=== PATIENT | female | born 1950 | race Caucasian/White ===

== ENCOUNTER 2017-05-19 13:14 | Observation (INO) | payer OTHER ==
[~2017-05-19] VITALS: Ht 167.6 cm; Wt 65.0 kg
[~2017-05-19 13:14] MED LIST: Z.0.NO CURRENT MEDS
--- NOTE | 2017-05-19 13:44 | PD ---
HPI Chief Complaint: abdominal pain Time Seen by Provider: 13:39 Travel History International Travel<30 days: No Contact w/Intl Traveler<30days: No Traveled to known affect area: No History of Present Illness HPI 66- year old female presents to the ED complaining of abdominal pain. She has a past medical history of hypotension and DVT. She reports epigastric pain that started around 4 this morning. She took 1/2 bottle of a peach drink, and 2 Mylanta but had no relief. She reports some associated nausea, but denies any vomiting or diarrhea. The patient states that the pain radiates to her lower back. She reports a few days ago she had some shortness of breath but it has resolved. She had two abdominal surgeries in the past including appendectomy and tummy tuck. She denies any smoking, drugs, or alcohol use. She does tell me she has a history of gallbladder disease. Per patient she follows with Dr. rolon and she was told that she needed to change her diet such she can prevent having gallbladder stones. She still has her gallbladder. She denies any chest pain or shortness of breath. She states that she has been eating a lot of hamburgers recently. PFSH Past Medical History Heart Rhythm Problems: Yes (TACHY TO A OMAR WITH VPC) Diminished Hearing: No Menopausal: Yes Past Surgical History Hysterectomy: Yes Other Surgery: Yes (PARTIAL THYROIDECTOMY) Social History Alcohol Use: No Tobacco Use: No Substance Use: No Allergies-Medications (Allergen,Severity, Reaction): Coded Allergies: aspirin (Verified Allergy, Severe, 05/19/17) Reported Meds & Prescriptions Reported Meds & Active Scripts Active Reported No Current Meds (Miscellaneous Medication) Misc Review of Systems General / Constitutional: No: Fever, Chills, Weight Gain, Weight Loss, Other Eyes: No: Diploplia, Blurred Vision, Photophobia, Drainage, Redness, Foreign Body Sensation, Pain, Tearing, Blind Spots, Visual changes, Blindness, Other HENT: No: Headaches, Vertigo, Lightheadedness, Sore Throat, Rhinitis, Rhinorrhea, Congestion, Nosebleed, Neck Stiffness, Neck Pain, Masses, Gingival Bleeding, Dental Difficulties, Ear Discharge, Earache, Other Cardiovascular: No: Chest Pain or Discomfort, Palpitations, Irregular Rhythm, Tachycardia, Diaphoresis, Syncope, Dyspnea on exertion, Varicosities, Edema, Cyanosis, Varicosities, Phlebitis, Claudication, Other Respiratory: Positive: Shortness of Breath (resolved), No: Cough, Wheezing, Sneezing, Orthopnea, Hemoptysis, Stridor, Night Sweats, Pleuritic Pain, Other Gastrointestinal: Positive: Nausea, Abdominal Pain, No: Vomiting, Diarrhea, Hematemesis, Hematochezia, Constipation, Changes in Bowel Habits, Indigestion, Dysphagia, Loss of Appetite, Other Genitourinary: No: Urgency, Frequency, Dysuria, Nocturia, Hematuria, Decreased Urinary Output, Oliguria, Hesitancy, Dribbling, Incontinence, Pelvic Pain, Flank Pain, Dyspareunia, Discharge, Dysmenorrhea, Menorrhagia, Metorrhagia, Vaginal Bleeding, Other Musculoskeletal: Positive: Pain (lower back pain), No: Myalgias, Arthralgias, Limited ROM, Weakness, Cramping, Edema, Atrophy, Other Skin: No Rash, No Itching, No Dryness, No Lumps, No Hives, No Change in Pigmentation, No Change in nails, No Alopecia, No Lesions, No Breast Lumps, No Breast Tenderness, No Breast Swelling, No Other Neurologic: No: Weakness, Dizziness, Syncope, Focal Abnormalities, Coordination Problem, Tremor, Ataxia, Headache, Change in Mentation, Slurred Speech, Paresthesia, Incontinence, Seizures, Sensory Disturbance, Other Psychiatric: No: Anxiety, Depression, Suicidal Ideations, Disorder of Thought, Mood Disorder, Substance Abuse, Homicidal Ideation, Other Endocrine: No: Heat Intolerance, Cold Intolerance, Polyuria, Polydipsia, Other Hematologic/Lymphatic: No: Easy Bruising, Lymph Node Enlargement, Other Physical Exam Narrative GENERAL: SKIN: Warm and dry. HEAD: Atraumatic. Normocephalic. EYES: Pupils equal and round. No scleral icterus. No injection or drainage. ENT: No nasal bleeding or discharge. Mucous membranes pink and moist. Tongue is midline. No uvula deviation. NECK: Trachea midline. No JVD. CARDIOVASCULAR: Regular rate and rhythm. No murmurs, S3, S4. RESPIRATORY: No accessory muscle use. Clear to auscultation. Breath sounds equal bilaterally. GASTROINTESTINAL: Tender to palpation in RUQ and LUQ. Abdomen soft, nondistended. Hepatic and splenic margins not palpable. MUSCULOSKELETAL: Extremities without clubbing, cyanosis, or edema. No obvious deformities. NEUROLOGICAL: Awake and alert. No obvious cranial nerve deficits. Motor grossly within normal limits. Five out of 5 muscle strength in the arms and legs. Normal speech. PSYCHIATRIC: Appropriate mood and affect; insight and judgment normal. Data Data Last Documented VS Vital Signs Date Time Temp Pulse Resp B/P Pulse Ox O2 Delivery O2 Flow Rate FiO2 05/19/17 16:12 16 05/19/17 14:11 48 05/19/17 13:59 97.8 161/70 98 Orders Electrocardiogram (05/19/17 13:32) Complete Blood Count With Diff (05/19/17 13:32) Comprehensive Metabolic Panel (05/19/17 13:32) Ckmb (Isoenzyme) Profile (05/19/17 13:32) Troponin I (05/19/17 13:32) Prothrombin Time / Inr (Pt) (05/19/17 13:32) Act Partial Throm Time (Ptt) (05/19/17 13:32) Lipase (05/19/17 13:32) Magnesium (Mg) (05/19/17 13:32) Chest, Single Ap (05/19/17 13:32) Iv Access Insert/Monitor (05/19/17 13:32) Ecg Monitoring (05/19/17 13:32) Oximetry (05/19/17 13:32) D-Dimer (05/19/17 13:45) Morphine Inj (Morphine Inj) (05/19/17 13:45) Ondansetron Inj (Zofran Inj) (05/19/17 13:45) CKMB (05/19/17 13:40) CKMB% (05/19/17 13:40) Lactic Acid (05/19/17 14:47) Ct Abd/Pel W Iv Contrast(Rout) (05/19/17 14:47) Morphine Inj (Morphine Inj) (05/19/17 15:45) Iohexol 350 Inj (Omnipaque 350 Inj) (05/19/17 16:01) Us Abdomen Gallbladder (05/19/17 ) Admit Order (Ed Use Only) (05/19/17 18:29) Labs Laboratory Tests Test 05/19/17 05/19/17 13:40 15:00 White Blood Count 8.6 TH/MM3 Red Blood Count 5.02 MIL/MM3 Hemoglobin 15.3 GM/DL Hematocrit 44.0 % Mean Corpuscular Volume 87.7 FL Mean Corpuscular Hemoglobin 30.5 PG Mean Corpuscular Hemoglobin 34.8 % Concent Red Cell Distribution Width 13.4 % Platelet Count 180 TH/MM3 Mean Platelet Volume 9.3 FL Neutrophils (%) (Auto) 82.9 % Lymphocytes (%) (Auto) 11.9 % Monocytes (%) (Auto) 4.7 % Eosinophils (%) (Auto) 0.2 % Basophils (%) (Auto) 0.3 % Neutrophils # (Auto) 7.1 TH/MM3 Lymphocytes # (Auto) 1.0 TH/MM3 Monocytes # (Auto) 0.4 TH/MM3 Eosinophils # (Auto) 0.0 TH/MM3 Basophils # (Auto) 0.0 TH/MM3 CBC Comment DIFF FINAL Differential Comment Prothrombin Time 10.7 SEC Prothromb Time International 1.0 RATIO Ratio Activated Partial 23.2 SEC Thromboplast Time D-Dimer Quantitative (PE/DVT) 0.33 MG/L FEU Sodium Level 136 MEQ/L Potassium Level 4.1 MEQ/L Chloride Level 104 MEQ/L Carbon Dioxide Level 24.2 MEQ/L Anion Gap 8 MEQ/L Blood Urea Nitrogen 20 MG/DL Creatinine 1.14 MG/DL Estimat Glomerular Filtration 48 ML/MIN Rate Random Glucose 148 MG/DL Calcium Level 10.0 MG/DL Magnesium Level 2.3 MG/DL Total Bilirubin 0.7 MG/DL Aspartate Amino Transf 30 U/L (AST/SGOT) Alanine Aminotransferase 30 U/L (ALT/SGPT) Alkaline Phosphatase 98 U/L Total Creatine Kinase 124 U/L Creatine Kinase MB 0.9 NG/ML Troponin I LESS THAN 0.02 NG/ML Total Protein 7.1 GM/DL Albumin 3.9 GM/DL Lipase 169 U/L Lactic Acid Level 1.6 mmol/L MDM Medical Decision Making Medical Screen Exam Complete: Yes Emergency Medical Condition: Yes Medical Record Reviewed: Yes Interpretation(s) CBC & BMP Diagram 05/19/17 13:40 LFTS WNL Lipase WNL EKG shows sinus rhythm but no sign of acute ischemia or arrythmia read by me and attending. Troponin and CK-MB negative. Last Impressions Chest X-Ray 05/19/17 1332 Signed Impressions: Service Date/Time: Friday, May 19, 2017 13:37 - CONCLUSION: 1. No acute cardiopulmonary disease. 2. Degenerative changes and scoliosis of the thoracolumbar spine. 3. Minimal scarring within the right lateral lung base. Talha Treadwell MD Last Impressions Abdomen/Pelvis CT 05/19/17 1447 Signed Impressions: Service Date/Time: Friday, May 19, 2017 15:46 - CONCLUSION: 1. Biliary dilatation and gallstones. This can be correlated with any signs of cholecystitis and biliary obstruction. A distal stone cannot be ruled out. A ductal stone is not seen on the CT examination. 2. Small non-obstructing right renal stone. Ellis Marr MD Chest X-Ray 05/19/17 1332 Signed Impressions: Service Date/Time: Friday, May 19, 2017 13:37 - CONCLUSION: 1. No acute cardiopulmonary disease. 2. Degenerative changes and scoliosis of the thoracolumbar spine. 3. Minimal scarring within the right lateral lung base. Talha Treadwell MD Gall Bladder Ultrasound 05/19/17 0000 Signed Impressions: Service Date/Time: Friday, May 19, 2017 17:13 - CONCLUSION: Cholelithiasis with a distended gallbladder with a thickened gallbladder wall. This should be correlated with any signs of cholecystitis. The common bile duct is also dilated. A biliary duct stone is not seen. Ellis Marr MD Differential Diagnosis Cholecystitis versus cholelithiasis versus gallbladder disease versus PE versus chest pain versus atypical chest pain versus podarthritis versus pancreatitis Narrative Course 66-year-old female that presents to the ED for evaluation of chest pain. Patient was properly examined and was found to have signs and symptoms consistent appears to be more likely abdominal pain. Labs and imaging were ordered. Labs and imaging showed possible gallbladder disease. Ultrasound was ordered. Ultrasound was positive for cholecystitis. Case was consulted with my attending Dr. Gregory who agrees the patient should be consulted with general surgery. Spoke with Dr. Woo who agrees to admission to his service for surgery tomorrow. Patient was told this and agrees with plan. Diagnosis Primary Impression: Cholecystitis, acute with cholelithiasis Qualified Code: K80.63 - Calculus of gallbladder and bile duct with acute cholecystitis, with obstruction Admitting Information Admitting Physician Requests: Admit Lino Hernandez May 19, 2017 13:44
[2017-05-19] MEDS ORDERED: MORPHINE SULFATE 4 MG/ML INJ IV PUSH ONE ×2 (13:45→15:45)
[2017-05-19] MEDS ORDERED: ONDANSETRON HCL 4 MG/2 ML VIAL IV PUSH ONE (13:45)
[2017-05-19 13:59] VITALS: BP 161/70; PULSE 59; RESP 20; TEMP 97.8; O2SAT 98
[2017-05-19 13:59] LABS: AUTOMATED NEUTROPHIL # 7.1 TH/MM3 (1.8-7.7); BASOPHIL % 0.3 % (0.0-2.0); EOSINOPHIL % 0.2 % (0.0-4.0); HEMO FLAGS DIFF FINAL; LYMPH % 11.9 % (9.0-44.0); MEAN CELL VOLUME 87.7 FL (80.0-100.0); MEAN CORPUSCULAR HEMOGLOBIN 30.5 PG (27.0-34.0); MEAN CORPUSCULAR HGB CONC 34.8 % (32.0-36.0); MONO % 4.7 % (0.0-8.0); NEUT % 82.9 % (16.0-70.0); PLATELET COUNT 180 TH/MM3 (150-450); RED BLOOD COUNT 5.02 MIL/MM3 (4.00-5.30); RED CELL DISTRIBUTION WIDTH 13.4 % (11.6-17.2); WHITE BLOOD COUNT 8.6 TH/MM3 (4.0-11.0)
[2017-05-19 14:13] LABS: APTT (PATIENT) 23.2 SEC (24.3-30.1); PROTHROMBIN TIME - PATIENT 10.7 SEC (9.8-11.6)
[2017-05-19 14:14] LABS: ANION GAP 8 MEQ/L (5-15); AST (GOT) 30 U/L (15-37); BICARBONATE 24.2 MEQ/L (21.0-32.0); BLOOD UREA NITROGEN 20 MG/DL (7-18); CHLORIDE 104 MEQ/L (98-107); GLOMERULAR FILTRATION RATE 48 ML/MIN (>89); MAGNESIUM 2.3 MG/DL (1.5-2.5); POTASSIUM 4.1 MEQ/L (3.5-5.1); SODIUM (NA) 136 MEQ/L (136-145)
[2017-05-19 14:15] LABS: ALT (GPT) 30 U/L (10-53)
[2017-05-19 14:19] LABS: ALKALINE PHOSPHATASE 98 U/L (45-117); CREATINE KINASE 124 U/L (26-192); TOTAL BILIRUBIN ADULT 0.7 MG/DL (0.2-1.0)
[2017-05-19 14:31] LABS: CKMB 0.9 NG/ML (0.5-3.6)
--- NOTE | 2017-05-19 15:06 | RADRPT ---
EXAM DATE/TIME: 05/19/2017 13:37 [facility] COMPARISON: No previous studies available for comparison. INDICATIONS : Severe back and epigastric pain today. MEDICAL HISTORY : Tachycardia. SURGICAL HISTORY : Hysterectomy. Cervical fusion. Partial thyroidectomy. ENCOUNTER: Initial ACUITY: 1 day PAIN SCORE: 10/10 LOCATION: Bilateral chest FINDINGS: The heart and mediastinal structures are normal. The pulmonary vascular pattern is also normal. The lungs are clear. Minimal scarring is noted within the right lateral lung base. Degenerative changes and scoliosis of the thoracolumbar spine are noted. CONCLUSION: 1. No acute cardiopulmonary disease. 2. Degenerative changes and scoliosis of the thoracolumbar spine. 3. Minimal scarring within the right lateral lung base. Talha Treadwell MD on May 19, 2017 at 15:00 Board Certified Radiologist. This report was verified electronically.
[2017-05-19] MEDS ORDERED: IOHEXOL 350 MG/ML 10 ML VIAL (for RAD DIAG) IV ONE (16:01)
--- NOTE | 2017-05-19 16:31 | RADRPT ---
EXAM DATE/TIME: 05/19/2017 15:46 [facility] COMPARISON: No previous studies available for comparison. INDICATIONS : Epigastric pain radiating to chest and back. IV CONTRAST: 85 cc Omnipaque 350 (iohexol) IV ORAL CONTRAST: No oral contrast ingested. RADIATION DOSE: 9.96 CTDIvol (mGy) MEDICAL HISTORY : Cardiovascular disease. SURGICAL HISTORY : Appendectomy. Hysterectomy. ENCOUNTER: Initial ACUITY: 1 day PAIN SCALE: 5/10 LOCATION: Bilateral upper quadrant TECHNIQUE: Volumetric scanning of the abdomen and pelvis was performed. Using automated exposure control and ad justment of the mA and/or kV according to patient size, radiation dose was kept as low as reasonably achievable to obtain optimal diagnostic quality images. DICOM format image data is available electro nically for review and comparison. FINDINGS: LOWER CHEST: The visualized lower lungs are clear. Bilateral breast implants are present. LIVER: There is intrahepatic biliary duct dilatation. The common bile duct appears dilated at 9 mm. There do appear to be gallstones within the gallbladder. The gallbladder is moderately distended. SPLEEN: Normal size without lesion. PANCREAS: Within normal limits. KIDNEYS: There is a 2 mm nonobstructing right renal stone. Nephrosis is seen. ADRENAL GLANDS: Within normal limits. VASCULAR: There is no aortic aneurysm. BOWEL/MESENTERY: Colonic diverticula are seen in the sigmoid region without inflammatory changes. ABDOMINAL WALL: Within normal limits. RETROPERITONEUM: There is no lymphadenopathy. BLADDER: No wall thickening or mass. REPRODUCTIVE: The patient is status post hysterectomy. A pelvic mass is not seen. INGUINAL: There is no lymphadenopathy or hernia. MUSCULOSKELETAL: Within normal limits for patient age. CONCLUSION: 1. Biliary dilatation and gallstones. This can be correlated with any signs of cholecystitis and bili geovanna obstruction. A distal stone cannot be ruled out. A ductal stone is not seen on the CT examination . 2. Small non-obstructing right renal stone. Ellis Marr MD on May 19, 2017 at 16:25 Board Certified Radiologist. This report was verified electronically.
--- NOTE | 2017-05-19 17:57 | RADRPT ---
EXAM DATE/TIME: 05/19/2017 17:13 [facility] COMPARISON: CT ABDOMEN & PELVIS W CONTRAST, May 19, 2017, 15:46. INDICATIONS : Right upper quadrant pain. MEDICAL HISTORY : Deep venous thrombosis. Bilateral pulmonary embolism. Irregular heartbeat. Hypotension. SURGICAL HISTORY : Appendectomy. Hysterectomy. Fusion, cervical. Partial thyroidectomy. Breast augmentation. Abdominopla sty. ENCOUNTER: Initial ACUITY: 1 day PAIN SCORE: 5/10 LOCATION: Right upper quadrant MEASUREMENTS: LIVER: 14.6 cm length COMMON DUCT: 11 mm RIGHT KIDNEY: 10.5 x 5.2 x 3.2 cm FINDINGS: LIVER: Normal echotexture without focal lesion or ductal dilatation. COMMON DUCT: Common bile duct dilated. No stones are seen within the common bile duct. GALLBLADDER: Multiple stones are seen. The gallbladder wall is thickened at 6 mm. The gallbladder is distended. PANCREAS: The visualized portions are within normal limits. RIGHT KIDNEY: No evidence of hydronephrosis, stone, or mass. CONCLUSION: Cholelithiasis with a distended gallbladder with a thickened gallbladder wall. This should be correla carmen with any signs of cholecystitis. The common bile duct is also dilated. A biliary duct stone is no t seen. Ellis Marr MD on May 19, 2017 at 17:52 Board Certified Radiologist. This report was verified electronically.
[2017-05-19] MEDS ORDERED: SODIUM CHLORIDE 0.9% FLUSH 10 ML FLUSH IV FLUSH PRN (18:45)
[2017-05-19] MEDS ORDERED: diphenhydrAMINE HCL 50 MG/ML VIAL IV PRN (18:45)
[2017-05-19] MEDS ORDERED: ONDANSETRON HCL 4 MG/2 ML VIAL IV PRN (18:45)
[2017-05-19] MEDS: D5-1/2 NS + KCL 20 MEQ INJ 1,000 ML IV SCH (19:49)
[2017-05-19] MEDS: LEVOFLOXACIN 500 MG PREMIX INJ 100 ML IV SCH (19:49)
[2017-05-19 19:55] VITALS: BP 133/63; PULSE 56; RESP 20; O2SAT 98
[2017-05-19 20:00] VITALS: BP 141/63; PULSE 32; RESP 17; TEMP 95.9; O2SAT 98
[2017-05-19] MEDS: metroNIDAZOLE 500 MG INJ 100 ML IV SCH (20:08)
[2017-05-19] MEDS: HYDROmorphone HCL PF 1 MG/ML VIAL IV PUSH PRN (20:40)
[2017-05-19] MEDS: SODIUM CHLORIDE 0.9% FLUSH 10 ML FLUSH IV FLUSH SCH (21:00)
--- NOTE | 2017-05-19 22:03 | HHI.HP ---
[facility] Service General Surgery Primary Care Physician Rylie Cohen MD Admission Diagnosis acute cholecystitis Chief Complaint: Abdominal pain History of Present Illness The patient is a 66-year-old female with a known history of gallstones who presents with severe abdominal pain. The pain started as a dull ache this morning at 4 AM and then progressed to severe epigastric pain radiating to the substernal area and to the back. It was unrelenting. She had nausea but no vomiting. She had relief only upon receiving IV pain medication in the emergency department about 7 years ago according to the patient she found out that she had gallstones. She says that she used some sort of alternative treatment to dissolve the gallstones. Also around that time she stopped being vegan and began eating meat. Last night she had a hamburger for dinner. She had labs which showed normal white blood count but a significant left shift. LFTs were normal. CT abdomen and pelvis showed a distended gallbladder and a dilated common bile duct. Ultrasound of the gallbladder showed wall thickening , gallstones, common bile duct of 11 mm. Review of Systems Constitutional: DENIES: Fever, Chills Eyes: DENIES: Eye inflammation, Eye pain Respiratory: DENIES: Cough, Wheezing Cardiovascular: COMPLAINS OF: Chest pain, DENIES: Syncope Gastrointestinal: COMPLAINS OF: Abdominal pain, Nausea, DENIES: Vomiting Integumentary: DENIES: Pruritus, Rash Neurologic: DENIES: Headache, Localized weakness, Seizures Past Family Social History Past Medical History DVT/PE Bradycardia Past Surgical History Appendectomy Hysterectomy Abdominoplasty Partial thyroidectomy Reported Medications Reported Meds & Active Scripts Active Reported No Current Meds (Miscellaneous Medication) Misc Allergies: Coded Allergies: aspirin (Verified Allergy, Severe, 05/19/17) Active Ordered Medications Current Medications Medications (Trade) Dose Ordered Sig/Pao Route Start Time Stop Time Status Last Admin (D5-1/2 NS + KCl 20 Meq Inj) 1,000 ml @ 100 mls/hr Q10H IV 05/19/17 20:00 05/19/17 19:49 (NS Flush) 2 ml UNSCH PRN IV FLUSH 05/19/17 18:45 Sodium Chloride 2 ml 2 ml BID IV FLUSH 05/19/17 21:00 Levofloxacin/ Dextrose 100 ml @ 100 mls/hr Q24H IV 05/19/17 20:00 05/19/17 19:49 (Flagyl 500 Mg Inj) 100 ml @ 100 mls/hr Q8H IV 05/19/17 21:00 05/19/17 20:08 (Zofran Inj) 4 mg Q6H PRN IV 05/19/17 18:45 (Benadryl Inj) 25 mg Q6H PRN IV 05/19/17 18:45 (Dilaudid Pf Inj) 0.5 mg Q3H PRN IV PUSH 05/19/17 18:45 05/19/17 20:40 Family History Noncontributory Social History No alcohol tobacco or drug use Physical Exam Vital Signs Vital Signs Date Time Temp Pulse Resp B/P Pulse Ox O2 Delivery O2 Flow Rate FiO2 05/19/17 21:10 18 05/19/17 20:00 95.9 32 17 141/63 98 05/19/17 19:55 56 20 133/63 98 Room Air 05/19/17 16:12 16 05/19/17 15:41 16 05/19/17 14:11 48 05/19/17 13:59 97.8 59 20 161/70 98 Physical Exam GENERAL: Awake and alert. No acute distress. Cooperative. HEAD: Normocephalic. Atraumatic. EYES: Pupils equal round and reactive to light bilaterally. No scleral icterus. CHEST: Lungs clear to auscultation bilaterally with no wheezing or rhonchi. No respiratory distress. CARDIOVASCULAR: Bradycardic ABDOMEN: Well-healed incisions. Moderate tenderness to palpation in the epigastrium. Negative Acosta sign. EXTREMITIES: No cyanosis or edema. SKIN: Warm, dry, nonjaundiced. Laboratory Laboratory Tests Test 05/19/17 05/19/17 13:40 15:00 White Blood Count 8.6 Red Blood Count 5.02 Hemoglobin 15.3 Hematocrit 44.0 Mean Corpuscular Volume 87.7 Mean Corpuscular Hemoglobin 30.5 Mean Corpuscular Hemoglobin 34.8 Concent Red Cell Distribution Width 13.4 Platelet Count 180 Mean Platelet Volume 9.3 Neutrophils (%) (Auto) 82.9 Lymphocytes (%) (Auto) 11.9 Monocytes (%) (Auto) 4.7 Eosinophils (%) (Auto) 0.2 Basophils (%) (Auto) 0.3 Neutrophils # (Auto) 7.1 Lymphocytes # (Auto) 1.0 Monocytes # (Auto) 0.4 Eosinophils # (Auto) 0.0 Basophils # (Auto) 0.0 CBC Comment DIFF FINAL Differential Comment Prothrombin Time 10.7 Prothromb Time International 1.0 Ratio Activated Partial 23.2 Thromboplast Time D-Dimer Quantitative (PE/DVT) 0.33 Sodium Level 136 Potassium Level 4.1 Chloride Level 104 Carbon Dioxide Level 24.2 Anion Gap 8 Blood Urea Nitrogen 20 Creatinine 1.14 Estimat Glomerular Filtration 48 Rate Random Glucose 148 Calcium Level 10.0 Magnesium Level 2.3 Total Bilirubin 0.7 Aspartate Amino Transf 30 (AST/SGOT) Alanine Aminotransferase 30 (ALT/SGPT) Alkaline Phosphatase 98 Total Creatine Kinase 124 Creatine Kinase MB 0.9 Troponin I LESS THAN 0.02 Total Protein 7.1 Albumin 3.9 Lipase 169 Lactic Acid Level 1.6 Result Diagram: 05/19/17 1340 05/19/17 1340 Imaging Last Impressions Abdomen/Pelvis CT 05/19/17 1447 Signed Impressions: Service Date/Time: Friday, May 19, 2017 15:46 - CONCLUSION: 1. Biliary dilatation and gallstones. This can be correlated with any signs of cholecystitis and biliary obstruction. A distal stone cannot be ruled out. A ductal stone is not seen on the CT examination. 2. Small non-obstructing right renal stone. Ellis Marr MD Chest X-Ray 05/19/17 1332 Signed Impressions: Service Date/Time: Friday, May 19, 2017 13:37 - CONCLUSION: 1. No acute cardiopulmonary disease. 2. Degenerative changes and scoliosis of the thoracolumbar spine. 3. Minimal scarring within the right lateral lung base. Talha Treadwell MD Gall Bladder Ultrasound 05/19/17 0000 Signed Impressions: Service Date/Time: Friday, May 19, 2017 17:13 - CONCLUSION: Cholelithiasis with a distended gallbladder with a thickened gallbladder wall. This should be correlated with any signs of cholecystitis. The common bile duct is also dilated. A biliary duct stone is not seen. Ellis Marr MD Assessment and Plan Assessment and Plan 66-year-old female with acute cholecystitis. She has dilation of the common bile duct and I think she probably had passed a stone. I will repeat LFTs in the morning. She has bradycardia which is asymptomatic. I discussed that I recommend proceeding with laparoscopic possible open cholecystectomy. We discussed details risks and benefits and she desires to proceed. Kunal Woo MD May 19, 2017 22:02
[2017-05-19] MEDS ORDERED: LACTATED RINGER'S 1000 ML IV PRN (22:45)
[2017-05-20] VITALS: BP 127/62; PULSE 35; RESP 17; TEMP 96.1; O2SAT 98
[2017-05-20] MEDS: metroNIDAZOLE 500 MG INJ 100 ML IV SCH ×3 (04:39→22:34)
[2017-05-20] MEDS: D5-1/2 NS + KCL 20 MEQ INJ 1,000 ML IV SCH ×3 (04:40→21:25)
[2017-05-20] MEDS: HYDROmorphone HCL PF 1 MG/ML VIAL IV PUSH PRN ×4 (07:35→21:28)
[2017-05-20] MEDS: SODIUM CHLORIDE 0.9% FLUSH 10 ML FLUSH IV FLUSH SCH ×2 (07:35→21:00)
[2017-05-20 08:00] VITALS: BP 110/61; PULSE 53; RESP 17; TEMP 96.8; O2SAT 97
[2017-05-20 08:13] LABS: AUTOMATED NEUTROPHIL # 4.6 TH/MM3 (1.8-7.7); BASOPHIL % 0.6 % (0.0-2.0); EOSINOPHIL # 0.1 TH/MM3 (0-0.4); EOSINOPHIL % 1.8 % (0.0-4.0); HEMATOCRIT 42.3 % (35.0-46.0); HEMO FLAGS DIFF FINAL; LYMPHOCYTE # 1.3 TH/MM3 (1.0-4.8); MEAN CELL VOLUME 88.4 FL (80.0-100.0); MEAN CORPUSCULAR HEMOGLOBIN 30.4 PG (27.0-34.0); MEAN CORPUSCULAR HGB CONC 34.4 % (32.0-36.0); MONO % 8.9 % (0.0-8.0); NEUT % 69.7 % (16.0-70.0); PLATELET COUNT 145 TH/MM3 (150-450); RED BLOOD COUNT 4.78 MIL/MM3 (4.00-5.30); RED CELL DISTRIBUTION WIDTH 13.5 % (11.6-17.2); WHITE BLOOD COUNT 6.6 TH/MM3 (4.0-11.0)
[2017-05-20 08:39] LABS: ALT (GPT) 26 U/L (10-53); ANION GAP 7 MEQ/L (5-15); AST (GOT) 25 U/L (15-37); BICARBONATE 27.8 MEQ/L (21.0-32.0); BLOOD UREA NITROGEN 12 MG/DL (7-18); CHLORIDE 105 MEQ/L (98-107); GLOMERULAR FILTRATION RATE 56 ML/MIN (>89); POTASSIUM 4.2 MEQ/L (3.5-5.1); SODIUM (NA) 140 MEQ/L (136-145)
[2017-05-20 08:49] LABS: ALKALINE PHOSPHATASE 91 U/L (45-117); TOTAL BILIRUBIN ADULT 1.1 MG/DL (0.2-1.0)
[2017-05-20 12:00] VITALS: BP 127/60; PULSE 57; RESP 16; TEMP 96.2; O2SAT 97
--- NOTE | 2017-05-20 12:13 | HHI.PR ---
Subjective Subjective Notes No complaints. She does not feel hungry. HR alternating 30s to 50s. BP ok, no symptoms. Objective Vitals/I&O Vital Signs Date Time Temp Pulse Resp B/P Pulse Ox O2 Delivery O2 Flow Rate FiO2 05/20/17 08:00 96.8 53 17 110/61 97 05/19/17 19:55 Room Air Labs Laboratory Tests Test 05/19/17 05/19/17 05/20/17 13:40 15:00 06:42 White Blood Count 8.6 6.6 Red Blood Count 5.02 4.78 Hemoglobin 15.3 14.5 Hematocrit 44.0 42.3 Mean Corpuscular Volume 87.7 88.4 Mean Corpuscular Hemoglobin 30.5 30.4 Mean Corpuscular Hemoglobin 34.8 34.4 Concent Red Cell Distribution Width 13.4 13.5 Platelet Count 180 145 Mean Platelet Volume 9.3 9.6 Neutrophils (%) (Auto) 82.9 69.7 Lymphocytes (%) (Auto) 11.9 19.0 Monocytes (%) (Auto) 4.7 8.9 Eosinophils (%) (Auto) 0.2 1.8 Basophils (%) (Auto) 0.3 0.6 Neutrophils # (Auto) 7.1 4.6 Lymphocytes # (Auto) 1.0 1.3 Monocytes # (Auto) 0.4 0.6 Eosinophils # (Auto) 0.0 0.1 Basophils # (Auto) 0.0 0.0 CBC Comment DIFF FINAL DIFF FINAL Differential Comment Prothrombin Time 10.7 Prothromb Time International 1.0 Ratio Activated Partial 23.2 Thromboplast Time D-Dimer Quantitative (PE/DVT) 0.33 Sodium Level 136 140 Potassium Level 4.1 4.2 Chloride Level 104 105 Carbon Dioxide Level 24.2 27.8 Anion Gap 8 7 Blood Urea Nitrogen 20 12 Creatinine 1.14 0.99 Estimat Glomerular Filtration 48 56 Rate Random Glucose 148 111 Calcium Level 10.0 8.6 Magnesium Level 2.3 Total Bilirubin 0.7 1.1 Aspartate Amino Transf 30 25 (AST/SGOT) Alanine Aminotransferase 30 26 (ALT/SGPT) Alkaline Phosphatase 98 91 Total Creatine Kinase 124 Creatine Kinase MB 0.9 Troponin I LESS THAN 0.02 Total Protein 7.1 6.4 Albumin 3.9 3.3 Lipase 169 Lactic Acid Level 1.6 Radiology Last Impressions Abdomen/Pelvis CT 8/15/17 1447 Signed Impressions: Service Date/Time: Friday, May 19, 2017 15:46 - CONCLUSION: 1. Biliary dilatation and gallstones. This can be correlated with any signs of cholecystitis and biliary obstruction. A distal stone cannot be ruled out. A ductal stone is not seen on the CT examination. 2. Small non-obstructing right renal stone. Ellis Marr MD Chest X-Ray 05/19/17 1332 Signed Impressions: Service Date/Time: Friday, May 19, 2017 13:37 - CONCLUSION: 1. No acute cardiopulmonary disease. 2. Degenerative changes and scoliosis of the thoracolumbar spine. 3. Minimal scarring within the right lateral lung base. Talha Treadwell MD Gall Bladder Ultrasound 05/19/17 0000 Signed Impressions: Service Date/Time: Friday, May 19, 2017 17:13 - CONCLUSION: Cholelithiasis with a distended gallbladder with a thickened gallbladder wall. This should be correlated with any signs of cholecystitis. The common bile duct is also dilated. A biliary duct stone is not seen. Ellis Marr MD Narrative Exam NAD Abd: soft, mild ttp Bradycardia A/P Assessment and Plan 66 yo F acute cholecystitis and bradycardia. WIll postpone case for now due to bradycardia. D/w Dr. Garcia and Dr. Penn anesthesia. Dr. Garcia will see today and give further recs. Continue IV antibiotics. Kunal Woo MD May 20, 2017 12:13
--- NOTE | 2017-05-20 14:39 | EKG ---
Date Performed: 05/20/2017 Time Performed: 09:59:08 PTAGE: 66 years EKG: SINUS BRADYCARDIA POSSIBLE LEFT ATRIAL ENLARGEMENT BORDERLINE ECG PREVIOUS TRACING : 05/19/2017 13.33 Compared to prior tracing no significant change DOCTOR: Joey Baird Interpretating Date/Time 05/20/2017 14:38:33
--- NOTE | 2017-05-20 14:55 | MB ---
cc: LOVE DENTON DATE OF CONSULTATION: 05/20/2017 INDICATION Bradycardia. HISTORY OF PRESENT ILLNESS This is a very nice 66-year-old female, she presented to the emergency department with acute onset of severe abdominal pain and history of prior gallstones. She stated yesterday that she started developing some epigastric discomfort radiating towards her back. CT of the abdomen showed distended gallbladder and dilated common bile duct. She was scheduled today for cholecystectomy but was noted to be bradycardic this morning. She states that she has bradycardia at baseline, she denies any symptoms, said her heart rate does pickup with activity. She denies any syncope, any chest pain. In the past she has seen Dr. Castañeda. She has been told that her bradycardia is normal for her. No history of cardiomyopathy. We are consulted for cardiac clearance prior to gallbladder surgery. PAST MEDICAL HISTORY History of prior pulmonary embolism and bradycardia. MEDICATIONS None. ALLERGIES ASPIRIN. REVIEW OF SYSTEMS 12-point review of systems was performed and negative unless otherwise noted in the history of present illness. FAMILY HISTORY Denies any family history of early coronary disease or sudden cardiac . SOCIAL HISTORY Denies any alcohol, tobacco or drug use. PHYSICAL EXAMINATION VITAL SIGNS: Temperature 96, pulse 57, blood pressure is 127/60 mmHg. GENERAL: Alert and oriented x3, in no acute distress. HEENT/NECK: Exam shows pupils are round and reactive to light and accommodation. Extraocular movements are intact. No elevation in jugular venous distension. No thyromegaly or lymphadenopathy. No carotid bruits. LUNGS: Clear to auscultation bilaterally. CARDIOVASCULAR: Regularly irregular with frequent PVCs and bigeminal pattern, 1/6 systolic murmur. ABDOMEN: Nondistended. EXTREMITIES: Extremities show no clubbing, cyanosis or edema. Good peripheral pulses. Cranial nerves are intact. Motor and sensory grossly intact. LABORATORY DATA WBC 6.6, hemoglobin is 14.5, platelet count 145, INR is 1. Sodium 140, potassium 4.2, BUN 12, creatinine 0.99, troponins negative. ASSESSMENT 1. Bradycardia. 2. Acute cholecystitis. PLAN Bradycardia is chronic. Reviewing the electrocardiogram she has sinus bradycardia, no first-degree AV block, no significant conduction disease. Her QRS is narrow suggesting there is no infrahisian disease. I reviewed telemetry since she had noted heart rates in the 30s, those actually correlated with a bigeminal PVC pattern with compensatory pause. Her R to R interval was at 30 but the PVC was not counted so her true heart rate was in the 50-60 range. Comparing this to her blood pressure which was checked at the time of her heart rate, recording in the 30s, blood pressure was normal. There is no indication for pacemaker. She is cleared from a cardiac perspective for surgery. She denies any chest pain and has no significant prior history of coronary artery disease. Would just place transcutaneous pads, if she has any significant bradycardic issues, those will probably resolve with either low-dose dobutamine or atropine. If there is any question you can give us a call. MD FLORINDA Guillermo/MARGY /2:15 PM /2:28 PM HEIDI
[2017-05-20 16:00] VITALS: BP 127/68; PULSE 55; RESP 17; TEMP 96.7; O2SAT 99
[2017-05-20 20:00] VITALS: BP 110/63; PULSE 53; RESP 16; TEMP 97.8; O2SAT 98
[2017-05-20 21:00] VITALS: PULSE 52
[2017-05-20] MEDS: LEVOFLOXACIN 500 MG PREMIX INJ 100 ML IV SCH (21:28)
[2017-05-21] VITALS (7 sets, daily range): BP systolic 112–138; BP diastolic 55–70; PULSE 34–70; RESP 16; TEMP 95.3–97.9; O2SAT 97–98
[2017-05-21] MEDS: HYDROmorphone HCL PF 1 MG/ML VIAL IV PUSH PRN ×2 (00:25→04:55)
[2017-05-21] MEDS: metroNIDAZOLE 500 MG INJ 100 ML IV SCH (04:52)
[2017-05-21] MEDS: SODIUM CHLORIDE 0.9% FLUSH 10 ML FLUSH IV FLUSH SCH ×2 (08:19→20:17)
[2017-05-21] MEDS ORDERED: ACETAMINOPHEN 1000 MG/100 ML VIAL IV ONE (08:25)
[2017-05-21] MEDS ORDERED: fentaNYL CITRATE 250 MCG/5 ML AMP ONE (08:25)
[2017-05-21] MEDS ORDERED: KETAMINE HCL 500 MG/5 ML VIAL ONE (08:26)
[2017-05-21] MEDS ORDERED: MIDAZOLAM HCL 2 MG/2 ML VIAL ONE (08:34)
[2017-05-21] MEDS ORDERED: HYDROmorphone HCL PF 2 MG/ML VIAL ONE (08:35)
--- NOTE | 2017-05-21 08:59 | EKG ---
Date Performed: 05/19/2017 Time Performed: 13:33:03 PTAGE: 66 years EKG: SINUS BRADYCARDIA NON-SPECIFIC ST/T WAVE CHANGES Compared to the PREVIOUS TRACING , ST/T wave changes are less prominent DOCTOR: Joey Baird Interpretating Date/Time 05/21/2017 08:55:13
--- NOTE | 2017-05-21 09:17 | EKG ---
Date Performed: 05/20/2017 Time Performed: 14:56:49 PTAGE: 66 years EKG: Sinus rhythm WITH FREQUENT VENTRICULAR PREMATURE COMPLEXES IN A BIGEMINAL PATTERN POSSIBLE LEFT ATRIAL ENLARGEMEN T NONSPECIFIC ST & T-WAVE ABNORMALITY ABNORMAL ECG PREVIOUS TRACING : 05/20/2017 09.59 COMPARED WITH PREVIOUS EKG PREMATURE VENTRICULAR COMPLEXES ARE NEW DOCTOR: Reginald Centeno Interpretating Date/Time 05/21/2017 09:07:02
[2017-05-21] MEDS ORDERED: BUPIVACAINE/EPINEPHRINE 0.25% 50 ML VIAL INFIL ONE (09:18)
[2017-05-21] MEDS ORDERED: IOHEXOL 350 MG/ML 50 ML BTL (for RAD DIAG) OTHER ONE (09:45)
[2017-05-21] MEDS ORDERED: OXYC1TAB63 PO (10:35)
--- NOTE | 2017-05-21 10:35 | PD.OP ---
cc: Kunal Woo MD Operative Report Date of Surgery: May 21, 2017 Preoperative Diagnosis: (1) Cholecystitis, acute with cholelithiasis Postoperative Diagnosis: (1) Cholecystitis, acute with cholelithiasis Procedure: Laparoscopic cholecystectomy with intraoperative cholangiogram Anesthesia: QUYNHA Surgeon: Kunal Woo Cigar Head Perforator(s): Marine Loja CFA Operation and Findings: , Complications: None apparent EBL:20cc Operative findings: Gallbladder wall distention and edema with multiple stones. Cholangiogram appears normal. Procedure in detail: The patient was taken to the operating room and placed in the supine position. General endotracheal anesthesia was induced. The abdomen was prepped and draped in usual sterile fashion and a surgical timeout was performed to verify correct patient procedure and site. Appropriate perioperative antibiotics were administered. Local anesthetic was injected in the skin and subcutaneous tissue right to the umbilicus and a 5 mm incision performed. The abdomen was entered using the Optiview 5 mm trocar with direct laparoscopic visualization. The abdomen was then insufflated to 15 mmHg with CO2 gas which the patient tolerated well. Next a 12 mm port was placed in the epigastrium and two 5 mm ports in the right upper quadrant and right lateral abdomen. The patient was placed in reverse Trendelenburg position and turned slightly to the left. Attention was turned to the right upper quadrant and the dome of the gallbladder was grasped and retracted cephalad. The gallbladder was very edematous and distended. There were multiple stones, large. One of the ribs actually was somewhat deformed and protruding down into the operative field. The liver was of a strange shape and the gallbladder attachments to the liver were a little abnormal. However the cystic duct infundibulum area was easily identified. The infundibulum was retracted laterally to expose Calot's triangle. Blunt dissection and judicious use of electrocautery was used to expose the cystic duct and the cystic artery directly entering the gallbladder. The cystic artery was taken down with the Harmonic scalpel. A clip was placed proximally on the cystic duct at the junction with the gallbladder. The cystic duct near this clip was partially transected until bile was visible. [facility] [employer] [facility] catheter was placed through the right lateral port into the cystic duct and secured in place with a clip. Saline easily advanced into the cystic and common ducts. We therefore proceeded to perform cholangiogram by injecting [id number] mixture of saline and Omnipaque and performing fluoroscopy. The contrast flowed into the duodenum and the common bile duct filled. It appeared dilated and there were no filling defects. 2 clips were placed on the cystic duct and then it was transected after removal of the cholangiogram catheter.The gallbladder was then removed from the liver bed using the harmonic scalpel. Hemostasis was achieved. The gallbladder was then removed from the abdomen using an Endo Catch bag after enlarging the fascial incision slightly due to the large size of the gallbladder and multiple stones. The clips were in place on the cystic duct stump with no bleeding or bile leakage. At this point, the abdomen was allowed to desufflate and trochars were removed. The fascia at the 12 mm port site was closed with 0 Vicryl suture. Skin was closed with subcuticular 4-0 Monocryl as well as Dermabond. The patient tolerated the procedure well and was extubated and taken to PACU in stable condition. All sponge and instrument counts were correct. Kunal Woo MD May 21, 2017 10:35
[2017-05-21] MEDS: D5-1/2 NS + KCL 20 MEQ INJ 1,000 ML IV SCH ×2 (11:00→20:18)
[2017-05-21] MEDS ORDERED: oxyCODONE/ACETAMINOPHEN 5 MG/325 MG TAB PO PRN ×2 (11:00)
[2017-05-21] MEDS ORDERED: DO NOT ADM ANY ANTICOAGULANT DRUGS PRN (12:15)
--- NOTE | 2017-05-21 13:39 | RADRPT ---
EXAM DATE/TIME: 05/21/2017 09:52 [facility] COMPARISON: US ABDOMEN - GALLBLADDER, May 19, 2017, 17:13. CT ABDOMEN & PELVIS W CONTRAST, May 19, 2017, 1 5:46. INDICATIONS : Recent obstruction 2 cholelithiasis. Intraoperative cholangiogram. FLUORO TIME: .25 minutes IMAGE COUNT: 1 MEDICAL HISTORY : Cholelithiasis. SURGICAL HISTORY : None. ENCOUNTER: Initial ACUITY: 1 day PAIN SCORE: 0/10 LOCATION: Abdomen PROCEDURE: CHOLANGIOGRAM, OPERATIVE 1. Intraoperative cholangiogram. In the operating room, the cystic duct stump was injected and radiographs obtained. The examination demonstrates cannulization of the cystic duct remnant with mild prominence of the com mon bile duct. There are no filling defects. CONCLUSION: No evidence of common duct stone. John Muse MD on May 21, 2017 at 13:36 Board Certified Radiologist. This report was verified electronically.
[2017-05-22] VITALS: BP 157/70; PULSE 55; RESP 20; TEMP 97.2; O2SAT 98
[2017-05-22 04:00] VITALS: BP 108/68; PULSE 56; RESP 18; TEMP 97; O2SAT 94
[2017-05-22 08:00] VITALS: BP 115/68; PULSE 53; RESP 16; TEMP 95.9; O2SAT 96
[2017-05-22] MEDS: D5-1/2 NS + KCL 20 MEQ INJ 1,000 ML IV SCH (08:00)
[2017-05-22] MEDS: SODIUM CHLORIDE 0.9% FLUSH 10 ML FLUSH IV FLUSH SCH (08:48)
--- NOTE | 2017-05-22 11:47 | HHI.DS ---
Discharge Summary Admission Date May 19, 2017 at 18:31 Discharge Date: May 22, 2017 Admitting Diagnosis acute cholecystitis Procedures Lap sonya with IOC Brief History The patient is a 66-year-old female with a known history of gallstones who presents with severe abdominal pain. The pain started as a dull ache this morning at 4 AM and then progressed to severe epigastric pain radiating to the substernal area and to the back. It was unrelenting. She had nausea but no vomiting. She had relief only upon receiving IV pain medication in the emergency department about 7 years ago according to the patient she found out that she had gallstones. She says that she used some sort of alternative treatment to dissolve the gallstones. Also around that time she stopped being vegan and began eating meat. Last night she had a hamburger for dinner. She had labs which showed normal white blood count but a significant left shift. LFTs were normal. CT abdomen and pelvis showed a distended gallbladder and a dilated common bile duct. Ultrasound of the gallbladder showed wall thickening , gallstones, common bile duct of 11 mm. CBC/BMP: 05/20/17 0642 05/20/17 0642 Significant Findings Laboratory Tests Test 05/19/17 05/20/17 13:40 06:42 Neutrophils (%) (Auto) 82.9 % (16.0-70.0) Activated Partial 23.2 SEC Thromboplast Time (24.3-30.1) Blood Urea Nitrogen 20 MG/DL (7-18) Creatinine 1.14 MG/DL (0.50-1.00) Estimat Glomerular Filtration 48 ML/MIN (>89) 56 ML/MIN (>89) Rate Random Glucose 148 MG/DL 111 MG/DL (74-106) (74-106) Troponin I LESS THAN 0.02 NG/ML (0.02-0.05) Platelet Count 145 TH/MM3 (150-450) Monocytes (%) (Auto) 8.9 % (0.0-8.0) Total Bilirubin 1.1 MG/DL (0.2-1.0) Albumin 3.3 GM/DL (3.4-5.0) PE at Discharge NAD Abd: soft, mild ttp, inc c/d/i Hospital Course Admitted for cholecystitis and planned for lap sonya. She had significant bradycardia but asymptomatic and therefore Dr. Garcia was consulted for eval. He stated that she is stable to proceed with surgery as planned. Post op she did well with minimal pain and tolerating diet. Pt Condition on Discharge: Good Discharge Disposition: Discharge Home Discharge Instructions DIET: Follow Instructions for: Low Fat Diet Activities you can perform: See Additionl Instruction Other Activity Instructions: OK to shower. Do not drive while on narcotics. Avoid heavy lifting. Follow up Referrals: Surgical - 2 Weeks with Kunal Woo MD New Medications: Oxycodone-Acetaminophen (Oxycodone-Acetaminophen) 5-325 mg Tab 1-2 TAB PO Q4H PRN PAIN #30 TAB Kunal Woo MD May 22, 2017 11:47
[2017-05-22 12:00] VITALS: BP 116/58; PULSE 60; RESP 16; TEMP 96.3; O2SAT 97
== END 2017-05-22 12:28 | disposition home or self-care (01) ==
LOC: NEPE 13:14 → INTOOBSV 18:31 → NEDA 18:31 → N07B 20:18
PROVIDERS: ADMIT Surgery; ATTEND Surgery
PROC: 0FT44ZZ Resection of Gallbladder, Percutaneous Endoscopic Approach (ICD-10-PCS; principal; 2017-05-19)
PROC: BF031ZZ Plain Radiography of Gallbladder and Bile Ducts using Low Osmolar Contrast (ICD-10-PCS; 2017-05-19)
DX: K80.12 Calculus of gallbladder with acute and chronic cholecystitis without obstruction (principal); R00.1 Bradycardia, unspecified; M41.9 Scoliosis, unspecified; Z86.711 Personal history of pulmonary embolism
CPT/HCPCS: 00790; 47563; 71010; 74177; 74300; 76705; 80053; 82550; 82552; 83605; 83690; 83735; 84443; 84484; 85025; 85379; 85610; 85730; 88304; 93005; 96361; 96365; 96366; 96367; 96368; 96375; 96376; 99285; G0378; J0131; J1170; J1956; J2250; J2270; J2405; J3010; J3480; Q9967; 96374